=== PATIENT | female | born 1950 | race Caucasian/White ===

== ENCOUNTER 2016-05-08 02:41 | Observation (INO) | payer MEDICARE, BC ==
[~2016-05-08 02:41] MED LIST: ADULT ASPIRIN81 MG PO; ASPIRIN81 MG; ATENOLOL50 MG; DIOVAN160 MG; MULTIVITAMIN1 TAB PO; NITROFURANTOIN100 M PO; NORVASC5 M2 PO; NORVASC5 MG; TENORMIN25 M1 PO; [UNRECOGNIZED DRUG - OTHER]
[2016-05-08 03:20] LABS: BASO % 0.3 % (0-2); EOS % 1.6 % (0-7); EOSINOPHIL ABSOLUTE COUNT 0.2 tho/cmm (0.0-0.7); HCT-HEMATOCRIT 58.2 % (34.0-49.0); HGB-HEMOGLOBIN 19.7 gm/dl (12.0-15.5); IMMATURE GRANULOCYTES ABSOLUTE 0.03 tho/cmm (0-0.03); IMMATURE GRANULOCYTES PERCENT 0.3 % (0-0.3); LYMPH % 28.1 % (20-45); LYMPH ABSOLUTE COUNT 2.7 tho/cmm (0.8-4.5); MCH (MEAN CORPUSCULAR HGB) 33.4 pg (28.0-32.0); MCHC MEAN CORPUSCULAR HGB CONC 33.8 % (32.0-36.0); MCV (MEAN CELL VOLUME) 98.6 fl (82.0-96.0); MEAN PLATELET VOLUME 9.6 cmc (9.4-12.4); MONO % 8.4 % (0-12); MONOCYTE ABSOLUTE COUNT 0.8 tho/cmm (0.0-1.2); NEUTROPHIL ABSOLUTE COUNT 5.8 tho/cmm (1.6-8.0); NEUTROPHIL-AUTOMATED 5.8 tho/cmm (1.6-8.0); NEUTROPHILS % 61.3 % (40-80); PLATELET COUNT 146 tho/cmm (150-450); RED CELL DISTRIBUTION WIDTH 14.4 % (12.4-16.4); WHITE BLOOD COUNT 9.4 tho/cmm (4.0-10.0)
[2016-05-08 03:40] LABS: ANION GAP 15 mmol/L (0-20); BLOOD UREA NITROGEN 7 mg/dl (6-24); CALCIUM 8.8 mg/dl (8.5-10.5); CARBON DIOXIDE-VENOUS 29 mmol/L (22-32); CHLORIDE 98 mmol/l (96-110); GLUCOSE 110 mg/dL (70-110); MAGNESIUM 1.9 mg/dl (1.3-2.6); POTASSIUM 3.7 mmol/L (3.7-5.1); SODIUM 138 mmol/L (135-145); eGFR VALUE FOR BLACK 90 mL/Min
[2016-05-08 03:44] LABS: TSH-THYROID STIMULATING HORM. 4.51 uIU/ml (0.40-3.80)
[2016-05-08 04:39] LABS: URINE BILIRUBIN NEGATIVE (NEG); URINE BLOOD SMALL (NEG); URINE GLUCOSE (UA) NEGATIVE (NEG); URINE KETONE NEGATIVE (NEG); URINE LEUKOCYTE ESTERASE POSITIVE (NEG); URINE NITRITE NEGATIVE (NEG); URINE PROTEIN NEGATIVE (NEG)
[2016-05-08 04:41] LABS: URINE APPEARANCE CLEAR; URINE COLOR YELLOW
[2016-05-08 04:46] LABS: URINE RBC 0-1 /[HPF] (0-5)
[2016-05-08] MEDS ORDERED: ASPIRIN EC81 MG PO (18:43)
[2016-05-08] MEDS ORDERED: NICOTINE PATCH1 EAC2 (18:43)
[2016-05-08] MEDS ORDERED: LIPITOR40 M1 PO (18:44)
== END 2016-05-08 19:10 | disposition left against medical advice (07) ==
LOC: EDMED 02:41 → EMR2 06:31 → 5EB 07:45
PROVIDERS: Emergency Medicine; ADMIT Internal Medicine
DX: R20.2 Paresthesia of skin (principal); R20.0 Anesthesia of skin; R05 Cough; I25.2 Old myocardial infarction; J44.9 Chronic obstructive pulmonary disease, unspecified; I10 Essential (primary) hypertension; E78.5 Hyperlipidemia, unspecified; F10.10 Alcohol abuse, uncomplicated; R79.89 Other specified abnormal findings of blood chemistry; F41.9 Anxiety disorder, unspecified; R19.7 Diarrhea, unspecified; K59.00 Constipation, unspecified; F17.210 Nicotine dependence, cigarettes, uncomplicated; I25.10 Atherosclerotic heart disease of native coronary artery without angina pectoris; D75.1 Secondary polycythemia; Z79.899 Other long term (current) drug therapy; Z88.1 Allergy status to other antibiotic agents; Z88.4 Allergy status to anesthetic agent; Z86.74 Personal history of sudden cardiac arrest; Z90.89 Acquired absence of other organs; Z98.890 Other specified postprocedural states
CPT/HCPCS: G0378; G8978-GP-CJ; G8979-GP-CJ; G8980-GP-CJ; J1650; J7030